=== PATIENT | male | born 1950 | race Caucasian/White ===

== ENCOUNTER → 2023-04-14 | Outpatient (CLI) | payer OTHER | END | disposition home or self-care (01) | LOC: CARD 09:17 | PROVIDERS: ATTEND Student in an Organized Health Care Education/Training Program | DX: R06.02 Shortness of breath (principal); R60.9 Edema, unspecified ==

== ENCOUNTER 2025-05-31 14:10 | Emergency (ER) | payer MEDICARE ==
[~2025-05-31] VITALS: Wt 91.6 kg
[2025-05-31 17:16] LABS: BUN 13 mg/dl (9-23)
[2025-05-31] MEDS ORDERED: APIXABAN 5 MG TAB PO ONE (18:15)
[2025-05-31] MEDS ORDERED: ELIQUIS5 M2 PO (18:19)
[2025-05-31] MEDS ORDERED: APIXABAN 5 MG TAB PO SCH (18:20)
== END 2025-05-31 18:20 | disposition home or self-care (01) ==
LOC: ED 14:10
PROVIDERS: Emergency Medicine
DX: I82.402 Acute embolism and thrombosis of unspecified deep veins of left lower extremity (principal); I50.9 Heart failure, unspecified